=== PATIENT | male | born 1970 | race Caucasian/White ===

== ENCOUNTER 2017-08-13 11:03 | Emergency (ER) | payer BC ==
[~2017-08-13] VITALS: Ht 182.9 cm; Wt 100.0 kg
[2017-08-13 11:05] VITALS: BP 158/91; PULSE 80; RESP 14; TEMP 98.8; O2SAT 100
[2017-08-13] MEDS ORDERED: METO25TA3 PO (11:27)
[2017-08-13] MEDS ORDERED: OMEP20TA93 PO (11:27)
[2017-08-13] MEDS ORDERED: INSU1INJ18 SQ (11:27)
[2017-08-13] MEDS ORDERED: GLIP1TAB49 PO (11:27)
[2017-08-13] MEDS ORDERED: METF1000 PO (11:27)
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
--- NOTE | 2017-08-13 12:04 | RADRPT ---
EXAM DATE/TIME: 08/13/2017 11:58 [facility] COMPARISON: No previous studies available for comparison. INDICATIONS : Pain in left ankle. MEDICAL HISTORY : None. SURGICAL HISTORY : Ankle surgery. ENCOUNTER: Initial ACUITY: 4 - 6 days PAIN SCORE: 8/10 LOCATION: Left upper extremity FINDINGS: Soft tissues are normal. Bony structures reveal 3 pins transfixing the medial malleolus distal tibia apparently remotely placed with healed fracture. There is a spur forming off the calcaneus at the ins ertion of plantar aponeurosis. No acute bony abnormality is appreciated. CONCLUSION: No acute bony injury. Remote orthopedic fixation medial malleolar healed fracture Steve Castrejon MD on August 13, 2017 at 12:01 Board Certified Radiologist. This report was verified electronically.
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
== END 2017-08-13 12:57 | disposition home or self-care (01) ==
LOC: NEPD 11:03
DX: S93.402A Sprain of unspecified ligament of left ankle, initial encounter (principal); S90.32XA Contusion of left foot, initial encounter; E11.9 Type 2 diabetes mellitus without complications; Z79.84 Long term (current) use of oral hypoglycemic drugs; I10 Essential (primary) hypertension; V49.00XA Driver injured in collision with unspecified motor vehicles in nontraffic accident, initial encounter; Y93.89 Activity, other specified; Y92.89 Other specified places as the place of occurrence of the external cause
CPT/HCPCS: 73610; 73630; 99283; E0113